=== PATIENT | male | born 1995 | race Caucasian/White ===

== ENCOUNTER 2023-04-17 00:06 | Emergency (ER) | payer SELFPAY ==
[~2023-04-17] VITALS: Ht 172.7 cm; Wt 81.6 kg
[2023-04-17 00:43] VITALS: BP 122/89
[2023-04-17 00:44] VITALS: BP 131/66
[2023-04-17 01:00] VITALS: BP 129/63
[2023-04-17] MEDS ORDERED: IBUPROFEN600 MG PO (02:16)
[2023-04-17] MEDS ORDERED: METHOCARBAMOL500 MG PO (02:16)
[2023-04-17 02:34] VITALS: BP 129/63
== END 2023-04-17 02:34 | disposition home or self-care (01) | DRG 556 ==
LOC: ED 00:06
DX: M25.561 Pain in right knee (principal)